=== PATIENT | female | born 1995 | race Two or more races ===

== ENCOUNTER 2018-11-16 19:45 | Emergency (ER) | payer MEDICAID ==
[~2018-11-16] VITALS: Ht 170.2 cm; Wt 113.0 kg
[2018-11-16 20:52] LABS: URINE BILIRUBIN - DIPSTICK NEGATIVE (NEGATIVE); URINE BLOOD DIPSTICK NEGATIVE (NEGATIVE); URINE COLOR YELLOW; URINE GLUCOSE - DIPSTICK NEGATIVE (NEGATIVE); URINE KETONE NEGATIVE (NEGATIVE); URINE LEUK ESTERASE NEGATIVE (NEGATIVE); URINE NITRITE - DIPSTICK NEGATIVE (Negative); URINE PH 5.5 (4.5-8.0); URINE PROTEIN - DIPSTICK NEGATIVE (NEG-TRACE); URINE UROBILINOGEN - DIPSTICK 0.2 E.U./dL (0.2)
[2018-11-16] MEDS ORDERED: LORTAB 1010 MG PO (20:59)
[2018-11-16] MEDS ORDERED: AMOXICILLIN500 MG PO (20:59)
[2018-11-16 21:04] VITALS: BP 147/91
== END 2018-11-16 21:10 | disposition home or self-care (01) ==
LOC: ED 19:45
PROVIDERS: Emergency Medicine
DX: K04.7 Periapical abscess without sinus (principal)

== ENCOUNTER 2018-11-25 10:56 | Emergency (ER) | payer MEDICAID ==
[~2018-11-25] VITALS: Ht 170.2 cm; Wt 114.0 kg
[~2018-11-25 10:56] MED LIST: AMOXICILLIN500 MG PO; LORTAB 1010 MG PO
[2018-11-25] MEDS ORDERED: TRAMADOL HYDROC50 M1 PO (11:42)
[2018-11-25 11:50] VITALS: BP 133/83
== END 2018-11-25 11:50 | disposition home or self-care (01) ==
LOC: ED 10:56
DX: K02.9 Dental caries, unspecified (principal); F17.210 Nicotine dependence, cigarettes, uncomplicated

== ENCOUNTER 2019-05-04 | Emergency (ER) | payer MEDICAID ==
[~2019-05-04] MED LIST changes: +TRAMADOL HYDROC50 M1 PO
[2019-05-04 06:16] LABS: URINE BILIRUBIN - DIPSTICK NEGATIVE (NEGATIVE); URINE BLOOD DIPSTICK NEGATIVE (NEGATIVE); URINE COLOR YELLOW; URINE GLUCOSE - DIPSTICK NEGATIVE (NEGATIVE); URINE KETONE NEGATIVE (NEGATIVE); URINE LEUK ESTERASE NEGATIVE (NEGATIVE); URINE NITRITE - DIPSTICK NEGATIVE (Negative); URINE PROTEIN - DIPSTICK NEGATIVE (NEG-TRACE); URINE SPECIFIC GRAVITY 1.025; URINE UROBILINOGEN - DIPSTICK 0.2 E.U./dL (0.2)
[2019-05-04 06:21] LABS: COCAINE NEGATIVE (NEGATIVE); TETRAHYDROCANNABIONOL POSITIVE (NEGATIVE)
[2019-05-04 06:22] LABS: BARBITURATES NEGATIVE (NEGATIVE); METHADONE NEGATIVE (NEGATIVE); OXCYCODONE POSITIVE (NEGATIVE); TRICYLIC ANTIDEPRESSANTS NEGATIVE (NEGATIVE)
[2019-05-04] MEDS ORDERED: TRAMADOL HYDROC50 MG PO (07:12)
[2019-05-05] MEDS ORDERED: HYDROCO/APAP1 TA9 PO (00:46)
[2019-05-05] MEDS ORDERED: CLEOCIN300 MG PO (00:46)
== END 2019-05-04 07:32 | disposition home or self-care (01) ==
DX: G44.209 Tension-type headache, unspecified, not intractable (principal); F17.200 Nicotine dependence, unspecified, uncomplicated; K02.9 Dental caries, unspecified; K01.1 Impacted teeth

== ENCOUNTER 2019-05-04 | Emergency (ER) | payer MEDICAID ==
[2019-05-04] MEDS ORDERED: TRAMADOL HYDROC50 MG PO (07:12)
[2019-05-04 23:52] LABS: HEMATOCRIT 38.6 % (37.0-47.0); HEMOGLOBIN 12.7 g/dl (12.0-16.0); IMMATURE GRANULOCYTES 0.3 % (0.0-5.0); MEAN CELL VOLUME 87.5 fL CALC (80.0-100.0); MEAN CORPUSCULAR HGB 28.8 pG CALC (26.0-32.0); MEAN CORPUSCULAR HGB CONC 32.9 g/dL CAL (32.0-36.0); NEUT# 5.23 thou/uL (2.00-7.15); RED BLOOD COUNT 4.41 mill/uL (4.20-5.60); RED CELL DISTRI WIDTH 13.1 % (11.5-15.5)
[2019-05-05 00:13] LABS: ALBUMIN 3.6 g/dL (3.2-5.0); ALKALINE PHOSPHATASE 75 u/l (38-126); ANION GAP 12 (6-22 (CALC)); BILIRUBIN, TOTAL 0.1 mg/dL (0.0-1.4); BUN 13 mg/dL (7-17); BUN/CREATININE RATIO 16 (12-20 (CALC)); CARBON DIOXIDE 24 mmol/l (22-30); CHLORIDE 105 mmol/l (95-108); CREATININE 0.8 mg/dL (0.5-1.0); GFR > 60 ML/MIN (>=60 (CALC)); GFR FOR AFR.AMER. > 60 ML/MIN (>=60 (CALC)); POTASSIUM 4.3 mmol/l (3.5-5.1); SGOT/AST 24 u/l (14-36); SODIUM 136 mmol/l (137-146); TOTAL PROTEIN 6.4 g/dL (6.3-8.2)
[2019-05-05] MEDS ORDERED: CLEOCIN300 MG PO (00:46)
[2019-05-05] MEDS ORDERED: HYDROCO/APAP1 TA9 PO (00:46)
== END 2019-05-05 01:52 | disposition home or self-care (01) ==
DX: R51 Headache (principal); K02.9 Dental caries, unspecified; K01.1 Impacted teeth

== ENCOUNTER 2019-08-06 16:24 | Emergency (ER) | payer MEDICAID ==
[~2019-08-06] VITALS: Ht 170.2 cm; Wt 113.6 kg
[~2019-08-06 16:24] MED LIST changes: +CLEOCIN300 MG PO; +HYDROCO/APAP1 TA9 PO; +TRAMADOL HYDROC50 MG PO
[2019-08-06 17:04] LABS: HEMATOCRIT 35.7 % (37.0-47.0); HEMOGLOBIN 11.9 g/dl (12.0-16.0); IMMATURE GRANULOCYTES 0.4 % (0.0-5.0); MEAN CELL VOLUME 86.4 fL CALC (80.0-100.0); MEAN CORPUSCULAR HGB 28.8 pG CALC (26.0-32.0); MEAN CORPUSCULAR HGB CONC 33.3 g/dL CAL (32.0-36.0); NEUT# 7.39 thou/uL (2.00-7.15); RED BLOOD COUNT 4.13 mill/uL (4.20-5.60); RED CELL DISTRI WIDTH 12.7 % (11.5-15.5)
[2019-08-06] MEDS ORDERED: LOVENOX40 MG/0.4 SC (17:12)
[2019-08-06] MEDS ORDERED: PRENATA3 PO (17:13)
[2019-08-06 17:14] LABS: URINE BILIRUBIN - DIPSTICK NEGATIVE (NEGATIVE); URINE BLOOD DIPSTICK LARGE (NEGATIVE); URINE COLOR YELLOW; URINE GLUCOSE - DIPSTICK NEGATIVE (NEGATIVE); URINE KETONE NEGATIVE (NEGATIVE); URINE LEUK ESTERASE NEGATIVE (Negative); URINE NITRITE - DIPSTICK NEGATIVE (Negative); URINE PH 5.5 (4.5-8.0); URINE PROTEIN - DIPSTICK 30 mg/dL (NEG-TRACE); URINE SPECIFIC GRAVITY 1.025; URINE UROBILINOGEN - DIPSTICK 0.2 E.U./dL (0.2)
[2019-08-06 17:15] LABS: URINE CLARITY CLOUDY
[2019-08-06 17:22] LABS: ALBUMIN 3.6 g/dL (3.2-5.0); ALKALINE PHOSPHATASE 58 u/l (38-126); ANION GAP 10 (6-22 (CALC)); BUN 9 mg/dL (7-17); BUN/CREATININE RATIO 16 (12-20 (CALC)); CARBON DIOXIDE 23 mmol/l (22-30); CHLORIDE 104 mmol/l (95-108); CREATININE 0.6 mg/dL (0.5-1.0); GFR > 60 ML/MIN (>=60 (CALC)); GFR FOR AFR.AMER. > 60 ML/MIN (>=60 (CALC)); POTASSIUM 3.7 mmol/l (3.5-5.1); SGOT/AST 21 u/l (14-36); SODIUM 134 mmol/l (137-146); TOTAL PROTEIN 6.4 g/dL (6.3-8.2)
[2019-08-06 17:23] LABS: ACT PARTIAL THROMBO TIME 23.6 SECONDS (20.0-32.5); INTERNATIONAL NORMALIZED RATIO 0.9 RATIO (0.7-1.3); PROTHROMBIN TIME 9.7 SECONDS (9.0-12.5)
[2019-08-06 17:24] LABS: URINE RBC TNTC RBC/hpf (0-5); URINE SQUAMOUS EPITHELIAL CELL FEW EPI/hpf (0-FEW)
[2019-08-06 17:37] LABS: BILIRUBIN, TOTAL 0.2 mg/dL (0.0-1.4)
[2019-08-06 18:05] LABS: BETA-HCG, QUANT(RESULT NUMBER) 29197 mIU/mL
[2019-08-06 19:50] VITALS: BP 120/68
== END 2019-08-06 19:50 | disposition home or self-care (01) ==
LOC: ED 16:24
DX: O46.91 Antepartum hemorrhage, unspecified, first trimester (principal); Z3A.00 Weeks of gestation of pregnancy not specified; Z86.718 Personal history of other venous thrombosis and embolism; Z79.01 Long term (current) use of anticoagulants